=== PATIENT | male | born 1995 | race Caucasian/White ===

== ENCOUNTER 2019-03-10 17:48 | Emergency (ER) | payer SELFPAY ==
[~2019-03-10] VITALS: Ht 182.9 cm; Wt 73.0 kg
[2019-03-10 17:54] VITALS: Ht 182.9 cm; Wt 73.0 kg
[2019-03-10 19:28] VITALS: BP 115/69
== END 2019-03-10 19:28 | disposition home or self-care (01) ==
LOC: ED 17:48
DX: S20.212A Contusion of left front wall of thorax, initial encounter (principal); W18.09XA Striking against other object with subsequent fall, initial encounter; Y93.61 Activity, american tackle football; Y92.321 Football field as the place of occurrence of the external cause; Y99.8 Other external cause status
CPT/HCPCS: J1885